=== PATIENT | female | born 1975 | race African-American/Black ===

== ENCOUNTER 2019-11-05 19:10 | Emergency (ER) | payer MEDICAID ==
[~2019-11-05] VITALS: Ht 154.9 cm; Wt 96.2 kg
[2019-11-05] MEDS ORDERED: cloNIDine HCL 0.1 MG TAB PO ONE (19:30)
[2019-11-05 20:25] VITALS: BP 234/88
== END 2019-11-05 20:35 | disposition home or self-care (01) ==
LOC: ER 19:10
DX: I16.0 Hypertensive urgency (principal); J45.909 Unspecified asthma, uncomplicated; F17.210 Nicotine dependence, cigarettes, uncomplicated